=== PATIENT | male | born 1975 | race Caucasian/White ===

== ENCOUNTER → 2016-12-14 | Outpatient (CLI) | payer BC, OTHER ==
[~2016-12-14] MED LIST: ALLE24TA8 PO; CELE-19 PO; CYMB1CAP PO; FLON0.054; GABA-282 PO; IBUP200T2 PO; IBUP80TA PO; LYRI75CA PO; MONT10TA2 PO; NEUR300C PO; PERC7.5T12 PO; TYLE167L PO; VOLT1GEL24 TD
--- NOTE | 2016-12-26 01:38 | ECWPNPC ---
PATIENT NAME: AMRIT FUNES : 1975 GENDER: MALE VISIT DATE: 12/14/2016 DISCHARGE DATE: 12/14/16 1511 VISIT LOCKED DATE TIME: PHYSICIAN: KAVIN MERCHANT RESOURCE: KAVIN MERCHANT REASON FOR APPOINTMENT 1. BACK HISTORY OF PRESENT ILLNESS HISTORY OF PRESENT ILLNESS: PAIN THE PATIENT DESCRIBES THE PAIN... 40 YEAR OLD MALE PATIENT WITH HISTORY OF CHRONIC LOW BACK PAIN. PATIENT DESCRIBES THE PAIN ACHING, SHOOTING, AND IT COMES AND GOES WITH A PAIN SCORE OF 1-3/10. PATIENT HAD A LEFT DISCECTOMY OF THE L5-S1 IN MARCH OF 2016 AND REPORTS OF DOING VERY WELL SINCE THE SURGERY. PATIENT STATES THAT IN THE MORNING HE WAKES UP WITH ACHES BUT SOON HE GETS MOVING IT GOES AWAY AND THE SHOOTING PAIN OCCURS WHEN HE DOES RECREATIONAL TYPE ACTIVITIES AND PROLONGED DRIVING. PATIENT STATES THAT HIS PAIN IS VERY MANAGEABLE AT THIS TIME AND DOES NOT THINK HE REQUIRES ANY INTERVENTIONS. PATIENT DENIES UNEXPLAINABLE WEIGHT LOSS, FEVER, CHILLS, NEW CHANGES ON HIS URINARY OR BOWEL CONTROL. FALL RISK SCREENING: SCREENING :NO FALLS IN THE PAST YEAR CURRENT MEDICATIONS TAKING FLONASE INHALER 1 SPRAY IN EACH NOSTRIL NASALLY ONCE A DAY TAKING GABAPENTIN 300 MG CAPSULE 1-2 CAPSULE ORALLY THREE TIMES A DAY, NOTES: LAST 529 TODAY TAKING IBUPROFEN 800 MG TABLET 1 TABLET ORALLY THREE TIMES A DAY, NOTES: LAST 529 TODAY TAKING VOLTAREN 1 % GEL 1 DOSE EXTERNALLY UP TO 4 TIMES DAY NEEDED, NOTES: LAST 529 TODAY TAKING LORATADINE 10 MG TABLET 1 TABLET ORALLY ONCE A DAY TAKING OMEPRAZOLE 20 MG CAPSULE DELAYED RELEASE 2 CAPSULES ORALLY ONCE A DAY NOT-TAKING PERCOCET 5-325 MG TABLET 1 TABLET NEEDED ORALLY DAILY NEEDED, NOTES: LAST 529 TODAY NOT-TAKING MONTELUKAST SODIUM 10 MG TABLET ORALLY ONCE A DAY, NOTES: LAST529 TODAY NOT-TAKING MELOXICAM 15 MG TABLET 1 TABLET ORALLY ONCE A DAY NEED, NOTES: LAST WEEK NOT-TAKING ZANAFLEX 2 MG CAPSULE 1 TO 2 CAPSULE NEEDED ORALLY QHS PRN FOR CRAMPS AND PAIN MEDICATION LIST REVIEWED AND RECONCILED WITH THE PATIENT PAST MEDICAL HISTORY BACK PAIN ALLERGIES CODEINE SULFATE: RASH SURGICAL HISTORY L4L5 LAMINECTOMY WITH DISCETOMY 2012 L5S1 LAMINECTOMY LEFT 2016 VAER[facility]OMY 2000 FAMILY HISTORY FATHER: ALIVE, DIAGNOSED WITH DIABETES, HYPERTENSION, HEART DISEASE, OTHER MOTHER: ALIVE, DIAGNOSED WITH DIABETES, CANCER 1 BROTHER - TBI 1 SON- 2MONTH OLD. SOCIAL HISTORY GENERAL: PAIN CLINIC PFS, CLERGY, PUBLIC HEALTH REFERRALS CLERGY REFERRAL NEEDED?NO WAS THE PROVIDER NOTIFIED OF ANY PERTINENT INFO?NO PFS REFERRAL NEEDED?NO PUBLIC HEALTH REFERRAL NEEDED?NO PATIENT: ____. HOSPITALIZATION/MAJOR DIAGNOSTIC PROCEDURE MONONUCLEOSIS MONONUCLEOSIS , HEPITITS REVIEW OF SYSTEMS CONSTITUTIONAL: ANY CHANGE IN YOUR MEDICAL CONDITION? YES PT HAD LEFT SIDE L5-S1 DISCECTOMY spring IN [place], [place]. . CHILLS NO . FEVER NO . INFECTION: DO YOU HAVE NEW INFECTIONS? NO . DO YOU HAVE HISTORY OF MRSA? NO . MUSCULOSKELETAL: ANY NEW PATTERNS OF PAIN OR NUMBNESS? NO . GASTROENTEROLOGY: ANY NEW CHANGE IN BOWEL CONTROL? NO . GENITOURINARY: ANY NEW CHANGE IN BLADDER CONTROL? NO . IS THERE A CHANCE YOU COULD BE ? NO . HEMATOLOGY/LYMPH: DO YOU TAKE ANY BLOOD THINNERS? (FOR EXAMPLE- COUMADIN, PLAVIX, AGGRENOX, PLATEL, PRADAXA, OR XARELTO) NO . WHEN WAS YOUR LAST DOSE? DATE: TIME: . NEUROLOGY: HAVE YOU FALLEN IN THE PAST 6 MONTHS? NO . ANY NEW EXTREMITY NUMBNESS OR WEAKNESS? NO . CARDIOLOGY: DO YOU HAVE A PACEMAKER OR DEFIBRILLATOR? NO . RESPIRATORY: HAVE YOU BEEN SICK IN THE PAST WEEK? NO . FEVER NO . FLU LIKE SYMPTOMS? NO . COUGH NO . INTEGUMENTARY: DO YOU HAVE ANY RASHES OR OPEN SORES? NO . ALLERGIC/IMMUNO: ARE YOU ALLERGIC TO SHELLFISH OR IV DYE? NO . ANY NEW ALLERGIES? NO . PSYCHIATRIC: DO YOU HAVE THOUGHTS OF HURTING YOURSELF OR SOMEONE ELSE? NO . ARE YOU ABUSED, NEGLECTED, OR IN AN UNSAFE ENVIRONMENT? NO . ENDOCRINOLOGY: ARE YOU DIABETIC? NO . OTHER: DO YOU NEED ANY PRESCRIPTIONS? NO . IF YES, PLEASE LIST: ____ . ANY NEW PROBLEMS WITH YOUR MEDICATIONS? NO . WHEN DID YOU LAST EAT? ____ . WHEN DID YOU LAST DRINK? ____ . WHAT DID YOU LAST DRINK? ____ . NAME OF PERSON DRIVING YOU HOME? ____ . DO YOU HAVE ANY OTHER QUESTIONS OR CONCERNS NO . REVIEWED BY: PROVIDER: KAVIN MERCHANT MD . VITAL SIGNS WT 247.8 LBS, HT 71 IN, BMI 34.56 INDEX, BP 133/90 MM HG, HR 92 /MIN, RR 18 /MIN, TEMP 99 F, OXYGEN SAT % 97, SAFE IN ENV? (Y/N) YES, NA INITIALS [id number], REVIEWED BY: EDWIN. EXAMINATION : PATIENT IS ALERT O X 3 AND COOPERATIVE. PATIENT AMBULATES WITH A NORMAL GAIT. ASSESSMENTS POSTLAMINECTOMY SYNDROME, NOT ELSEWHERE CLASSIFIED - M96.1 (PRIMARY) TREATMENT POSTLAMINECTOMY SYNDROME, NOT ELSEWHERE CLASSIFIED NOTES: WE DISCUSSED SEVERAL ISSUES WITH MR. GOMEZ'S PAIN MANAGEMENT CASE. AT THIS TIME, I WILL HOLD OFF INTERVENTIONS DUE TO THE PATIENT DOING VERY WELL. I DISCUSSED WITH THE PATIENT THAT I CAN SEE HIM AGAIN 1 YEAR FROM NOW WITHOUT HAVING ANOTHER REFERRAL BEING SENT OUT. INFORMED THE PATIENT AT THIS TIME I ADVISED HIM TO GIVE US A CALL IF NEEDED, OTHERWISE WE WILL SEE HIM ABOUT ONE YEAR OR LESS FROM TODAY. INSTRUCTIONS WERE GIVEN, QUESTIONS WERE ANSWERED, PATIENT REPORTS UNDERSTANDING AND AGREES WITH THE PLAN. I, ANDREW GRIFFITHS, DOCUMENTED THE ABOVE INFORMATION ACTING A SCRIBE FOR DR. MERCHANT. I HAVE REVIEWED THE ABOVE DOCUMENT, WRITTEN BY ANDREW GRIFFITHS SCRIBE AND I VERIFY THAT IT IS ACCURATE. PROCEDURE CODES FA211 ESTABILISHED PATIENT [facility] FACILITY CHARGE G8730 PAIN ASSESS POS TOOL F/U PLAN DOC G8427 DOC MEDS VERIFIED W/PT OR RE DISPOSITION & COMMUNICATION FOLLOW UP CALL NEEDED ELECTRONICALLY SIGNED BY KAVIN MERCHANT MD ON 12/24/2016 AT 08:20 AM EDT DISCLAIMER : THIS IS A VISIT SUMMARY EXTRACTED FROM THE [employer] CHART. IT IS NOT A COPY OF THE [employer] PROGRESS NOTE. MTDD
== END ==
LOC: M PAIN 14:00
PROVIDERS: ATTEND Anesthesiology
DX: M96.1 Postlaminectomy syndrome, not elsewhere classified (principal); Z88.5 Allergy status to narcotic agent; Z79.1 Long term (current) use of non-steroidal anti-inflammatories (NSAID); Z79.899 Other long term (current) drug therapy

== ENCOUNTER → 2017-04-05 | Outpatient (CLI) | payer BC, OTHER ==
[~2017-04-05] MED LIST changes: -CELE-19 PO; +CELE1CAP4 PO; +VOLT1GEL15 TD; -VOLT1GEL24 TD
--- NOTE | 2017-04-22 23:57 | ECWPNPC ---
PATIENT NAME: AMRIT FUNES : 1975 GENDER: MALE VISIT DATE: 04/05/2017 DISCHARGE DATE: 04/05/17 0955 VISIT LOCKED DATE TIME: PHYSICIAN: KAVIN MERCHANT RESOURCE: KAVIN MERCHANT REASON FOR APPOINTMENT 1. BACK PAIN HISTORY OF PRESENT ILLNESS HISTORY OF PRESENT ILLNESS: PAIN THE PATIENT DESCRIBES THE PAIN... 41 YEAR OLD MALE PATIENT WITH HISTORY OF CHRONIC LOW BACK PAIN. PATIENT DESCRIBES THE PAIN ACHING, SHOOTING, AND IT COMES AND GOES WITH A PAIN SCORE OF 4/5/10. PATIENT HAD A LEFT DISCECTOMY OF THE L5-S1 IN MARCH OF 2016 AND REPORTS OF DOING VERY WELL SINCE THE SURGERY. PATIENT STATES THAT IN THE MORNING HE WAKES UP WITH ACHES BUT SOON HE GETS MOVING IT GOES AWAY AND THE SHOOTING PAIN OCCURS WHEN HE DOES RECREATIONAL TYPE ACTIVITIES AND PROLONGED DRIVING. PATIENT STATES THAT HIS PAIN IS VERY MANAGEABLE AT THIS TIME AND DOES NOT THINK HE REQUIRES ANY INTERVENTIONS. PATIENT DENIES UNEXPLAINABLE WEIGHT LOSS, FEVER, CHILLS, NEW CHANGES ON HIS URINARY OR BOWEL CONTROL. FALL RISK SCREENING: SCREENING :NO FALLS IN THE PAST YEAR CURRENT MEDICATIONS TAKING FLONASE INHALER 1 SPRAY IN EACH NOSTRIL NASALLY ONCE A DAY TAKING GABAPENTIN 300 MG CAPSULE 1-2 CAPSULE ORALLY THREE TIMES A DAY, NOTES: LAST 529 TODAY TAKING IBUPROFEN 800 MG TABLET 1 TABLET ORALLY THREE TIMES A DAY, NOTES: LAST 529 TODAY TAKING VOLTAREN 1 % GEL 1 DOSE EXTERNALLY UP TO 4 TIMES DAY NEEDED, NOTES: 529 TODAY TAKING LORATADINE 10 MG TABLET 1 TABLET ORALLY ONCE A DAY TAKING OMEPRAZOLE 20 MG CAPSULE DELAYED RELEASE 2 CAPSULES ORALLY ONCE A DAY TAKING TRAMADOL HCL 50 MG TABLET 1 TAB ORALLY DAILY NOT-TAKING PERCOCET 5-325 MG TABLET 1 TABLET NEEDED ORALLY DAILY NEEDED, NOTES: LAST 529 TODAY NOT-TAKING MONTELUKAST SODIUM 10 MG TABLET ORALLY ONCE A DAY, NOTES: LAST529 TODAY NOT-TAKING MELOXICAM 15 MG TABLET 1 TABLET ORALLY ONCE A DAY NEED, NOTES: LAST WEEK NOT-TAKING ZANAFLEX 2 MG CAPSULE 1 TO 2 CAPSULE NEEDED ORALLY QHS PRN FOR CRAMPS AND PAIN MEDICATION LIST REVIEWED AND RECONCILED WITH THE PATIENT PAST MEDICAL HISTORY BACK PAIN ALLERGIES CODEINE SULFATE: RASH SURGICAL HISTORY L4L5 LAMINECTOMY WITH DISCETOMY 2012 L5S1 [facility] LEFT [facility] SOCIAL HISTORY GENERAL: TOBACCO USE SMOKING CESSATION INFORMATION GIVEN04/05/2017 LEARNING BARRIERS / SPECIAL NEEDS ABILITY TO UNDERSTAND VERBAL INSTRUCTIONS GOOD , ABILITY TO UNDERSTAND WRITTEN INSTRUCTIONS GOOD , KNOWLEDGE OF EDUCATIONAL NEEDS/TREATMENT PLAN GOOD , 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 PAIN CLINIC PFS, CLERGY, PUBLIC HEALTH REFERRALS PFS REFERRAL NEEDED? NO , CLERGY REFERRAL NEEDED? NO , PUBLIC HEALTH REFERRAL NEEDED? NO , WAS THE PROVIDER NOTIFIED OF ANY PERTINENT INFO? NO . HOSPITALIZATION/MAJOR DIAGNOSTIC PROCEDURE MONONUCLEOSIS MONONUCLEOSIS , HEPITITS REVIEW OF SYSTEMS REVIEWED BY: PROVIDER: KAVIN MERCHANT MD . CONSTITUTIONAL: ANY CHANGE IN YOUR MEDICAL CONDITION? NO . CHILLS NO . FEVER NO . INFECTION: DO YOU HAVE NEW INFECTIONS? NO . DO YOU HAVE HISTORY OF MRSA? NO . MUSCULOSKELETAL: ANY NEW PATTERNS OF PAIN OR NUMBNESS? NO . GASTROENTEROLOGY: ANY NEW CHANGE IN BOWEL CONTROL? NO . GENITOURINARY: ANY NEW CHANGE IN BLADDER CONTROL? NO . IS THERE A CHANCE YOU COULD BE ? NO . HEMATOLOGY/LYMPH: DO YOU TAKE ANY BLOOD THINNERS? (FOR EXAMPLE- COUMADIN, PLAVIX, AGGRENOX, PLATEL, PRADAXA, OR XARELTO) NO . WHEN WAS YOUR LAST DOSE? DATE: TIME: . NEUROLOGY: HAVE YOU FALLEN IN THE PAST 6 MONTHS? NO . ANY NEW EXTREMITY NUMBNESS OR WEAKNESS? NO . CARDIOLOGY: DO YOU HAVE A PACEMAKER OR DEFIBRILLATOR? NO . RESPIRATORY: HAVE YOU BEEN SICK IN THE PAST WEEK? NO . FEVER NO . FLU LIKE SYMPTOMS? NO . COUGH NO . INTEGUMENTARY: DO YOU HAVE ANY RASHES OR OPEN SORES? NO . ALLERGIC/IMMUNO: ARE YOU ALLERGIC TO SHELLFISH OR IV DYE? NO . ANY NEW ALLERGIES? NO . PSYCHIATRIC: DO YOU HAVE THOUGHTS OF HURTING YOURSELF OR SOMEONE ELSE? NO . ARE YOU ABUSED, NEGLECTED, OR IN AN UNSAFE ENVIRONMENT? NO . ENDOCRINOLOGY: ARE YOU DIABETIC? NO . OTHER: DO YOU NEED ANY PRESCRIPTIONS? NO . IF YES, PLEASE LIST: ____ . ANY NEW PROBLEMS WITH YOUR MEDICATIONS? NO . WHEN DID YOU LAST EAT? ____ . WHEN DID YOU LAST DRINK? ____ . WHAT DID YOU LAST DRINK? ____ . NAME OF PERSON DRIVING YOU HOME? ____ . DO YOU HAVE ANY OTHER QUESTIONS OR CONCERNS NO . VITAL SIGNS WT 237.6 LBS, HT 71 IN, BMI 33.13 INDEX, BP 146/69 MM HG, HR 66 /MIN, RR 18 /MIN, TEMP 98.0 F, OXYGEN SAT % 97%, NA INITIALS SC 08:54. EXAMINATION : PATIENT IS ALERT O X 3 AND COOPERATIVE. PATIENT AMBULATES WITH A NORMAL GAIT. TENDERNESS IN THE LOWER BACK AND PARASPINAL MUSCLE GROUP. LUMBAR MRI DONE ON 11/09/15 SHOWS A DISC PROTRUSION AT L4-L5 AND L5-S1 AND FACET ATROPHY. 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 FUNES' PAIN MANAGEMENT CASE. AT THIS TIME THE PATIENT WILL CONTINUE WITH THE SAME MEDICATION REGIME BEFORE. DUE TO THE PATIENT HAVING GOOD PAIN RELIEF FROM LUMBAR FACET BLOCKS I WOULD LIKE TO MOVE FORWARD WITH A THERAPEUTIC LUMBAR FACET BLOCK. WE DISCUSSED THE RISKS, BENENFITS, AND ALTNERATIVES OF THE INJECTION AND THE PATIENT WOULD LIKE TO PROCEED AT THIS TIME. INSTRUCTIONS WERE GIVEN, QUESTIONS WERE ANSWERED, PATIENT REPORTS UNDERSTANDING AND AGREES WITH THE PLAN. I, NANCY LAL, DOCUMENTED THE ABOVE INFORMATION ACTING A SCRIBE FOR DR. MERCHANT. I HAVE REVIEWED THE ABOVE DOCUMENT, WRITTEN BY NANCY YU AND I VERIFY THAT IT IS ACCURATE. PREVENTIVE MEDICINE PAIN CLINIC TEACHING: PROCEDURE TEACHING WENT OVER PROCEDURE EDUCATION WITH THE PT WHO VERBALIZES UNDERSTANDING. PROCEDURE CODES FA211 ESTABILISHED PATIENT [facility] FACILITY CHARGE G8427 DOC MEDS VERIFIED W/PT OR RE G8730 PAIN ASSESS POS TOOL F/U PLAN DOC DISPOSITION & COMMUNICATION FOLLOW UP 3 WEEKS ELECTRONICALLY SIGNED BY KAVIN MERCHANT MD ON 04/22/2017 AT 08:09 PM EDT DISCLAIMER : THIS IS A VISIT SUMMARY EXTRACTED FROM THE [employer] CHART. IT IS NOT A COPY OF THE [employer] PROGRESS NOTE. HENNY
== END ==
LOC: M PAIN 09:00
PROVIDERS: ATTEND Anesthesiology
DX: G89.29 Other chronic pain (principal); M47.816 Spondylosis without myelopathy or radiculopathy, lumbar region; M51.16 Intervertebral disc disorders with radiculopathy, lumbar region; M51.17 Intervertebral disc disorders with radiculopathy, lumbosacral region; M47.817 Spondylosis without myelopathy or radiculopathy, lumbosacral region; Z88.5 Allergy status to narcotic agent; Z79.1 Long term (current) use of non-steroidal anti-inflammatories (NSAID); Z79.891 Long term (current) use of opiate analgesic; Z79.899 Other long term (current) drug therapy

== ENCOUNTER → 2017-06-25 | Outpatient (CLI) | payer BC, OTHER ==
[~2017-06-25] MED LIST changes: +BUPIVACAINE HCL 0.25% 30 ML VIAL As Ordered ONE; +ISOVUE-M 300 61% 15ML VIAL (Q9967) As Ordered ONE; +LIDOCAINE 1% SDV INJ 30 ML VIAL As Ordered ONE; +TRIAMCINOLONE ACETONIDE SUSP 40 MG/ML VIAL (J3301) As Ordered ONE; +diazePAM 5 MG TAB As Ordered ONE; +oxyCODONE 5MG TAB As Ordered ONE
--- NOTE | 2017-06-25 16:53 | REP ---
FACET BLOCK: The images were reviewed with Dr. Flowers. The patient has a history of low back pain. The portable C-ARM was provided in the OR for Dr. Sanchez for fluoroscopic guidance. 2 intraoperative fluoroscopic spot films were obtained for needle placement verification for bilateral lumbar facet injection. The films are on the PACs system and are available for review. 33 seconds of fluoroscopic time was utilized for this procedure. Reviewed by ROSA Pham 06/26/2017 02:46 PEdited and Signed by Dong Flowers MD 06/26/2017 05:03 P
--- NOTE | 2017-06-30 23:34 | ECWPNPC ---
PATIENT NAME: AMRIT FUNES : 1975 GENDER: MALE VISIT DATE: 06/25/2017 DISCHARGE DATE: 06/25/17 1117 VISIT LOCKED DATE TIME: PHYSICIAN: KAVIN MERCHANT RESOURCE: KAVIN MERCHANT REASON FOR APPOINTMENT 1. LUM FACET, THERA HISTORY OF PRESENT ILLNESS ASTHMA: HISTORY OF PRESENT ILLNESS: PAIN THE PATIENT DESCRIBES THE PAIN... FALL RISK SCREENING: SCREENING :NO FALLS IN THE PAST YEAR CURRENT MEDICATIONS TAKING FLONASE INHALER 1 SPRAY IN EACH NOSTRIL NASALLY ONCE A DAY, NOTES: LAST WEEK TAKING GABAPENTIN 300 MG CAPSULE 1-2 CAPSULE ORALLY THREE TIMES A DAY, NOTES: 2TABS 06/25 500 TAKING IBUPROFEN 800 MG TABLET 1 TABLET ORALLY THREE TIMES A DAY, NOTES: 1 TAB 06/25 500 TAKING VOLTAREN 1 % GEL 1 DOSE EXTERNALLY UP TO 4 TIMES DAY NEEDED, NOTES: 2 DAYS AGO TAKING LORATADINE 10 MG TABLET 1 TABLET ORALLY ONCE A DAY, NOTES: 06/25 500 TAKING OMEPRAZOLE 20 MG CAPSULE DELAYED RELEASE 1 CAP ORALLY ONCE A DAY, NOTES: 06/25 500 TAKING TRAMADOL HCL 50 MG TABLET 1 TAB ORALLY DAILY, NOTES: 06/24 1630 TAKING CYCLOBENZAPRINE HCL 10 MG TABLET 1 TABLET ORALLY DAILY, NOTES: 06/24 1630 NOT-TAKING MONTELUKAST SODIUM 10 MG TABLET ORALLY ONCE A DAY, NOTES: LASTB 05 TODAY DISCONTINUED PERCOCET 5-325 MG TABLET 1 TABLET NEEDED ORALLY DAILY NEEDED, NOTES: LAST 529 TODAY DISCONTINUED MELOXICAM 15 MG TABLET 1 TABLET ORALLY ONCE A DAY NEED, NOTES: LAST WEEK DISCONTINUED ZANAFLEX 2 MG CAPSULE 1 TO 2 CAPSULE NEEDED ORALLY QHS PRN FOR CRAMPS AND PAIN MEDICATION LIST REVIEWED AND RECONCILED WITH THE PATIENT PAST MEDICAL HISTORY BACK PAIN ALLERGIES CODEINE SULFATE: RASH: ALLERGY SEASONAL: SINUS CONGRESTION AND PRESSURE, WATERY EYES,ITCHY: ALLERGY SOCIAL HISTORY GENERAL: TOBACCO USE ADDITIONAL FINDINGS: TOBACCO USERCHEWS TOBACCO SMOKING CESSATION INFORMATION GIVEN06/25/2017 ALCOHOL SCREENING POINTS0 INTERPRETATIONNEGATIVE RECREATIONAL DRUG USE DRUG USE?NO CAFFEINE CAFFEINE USE?YES HOW OFTEN AND HOW MUCH? 3-4 CUPS COFFEE/DAY DIET: REGULAR. PENTECOSTALISM [id number] JEWISH LEARNING BARRIERS / SPECIAL NEEDS BARRIERS TO LEARNING?NO HEARING IMPAIRED?NO VISION IMPAIRED?NO COGNITIVELY IMPAIRED?NO READINESS TO LEARN?YES LEARNING PREFERENCES?NO LEARNING CAPABILITIES PRESENT?YES EMOTIONAL BARRIERS?NO SPECIAL DEVICES?NO ENDOSCOPY REGISTERED NURSE NEEDED?NO PAIN CLINIC PFS, CLERGY, PUBLIC HEALTH REFERRALS HAS THE PATIENT BEEN EDUCATED REGARDING HIS/HER PLAN OF CARE?YES HAS THE PATIENT BEEN EDUCATED REGARDING PAIN, THE RISK FOR PAIN, THE IMPORTANCE OF EFFECTIVE PAIN MANAGEMENT, AND THE PAIN ASSESSMENT PROCESS?YES ADVANCE DIRECTIVES HEALTH CARE PROXY?YES NAME OF HCP ZORAN FUNES CONTACT # FOR HCP (H) DO YOU HAVE A COPY WITH YOU?NO DO YOU HAVE A DNR?NO WOULD YOU LIKE MORE INFORMATION?NO LIVING WILL?NO WOULD YOU LIKE MORE INFORMATION?NO POWER OF BRASS CLEANER?NO WOULD YOU LIKE MORE INFORMATION?NO DOMESTIC VIOLENCE DO YOU FEEL SAFE IN YOUR ENVIRONMENT?YES REVIEW OF SYSTEMS REVIEWED BY: PROVIDER: . CONSTITUTIONAL: ANY CHANGE IN YOUR MEDICAL CONDITION? NO . CHILLS NO . FEVER NO . INFECTION: DO YOU HAVE NEW INFECTIONS? NO . DO YOU HAVE HISTORY OF MRSA? NO . MUSCULOSKELETAL: ANY NEW PATTERNS OF PAIN OR NUMBNESS? NO . GASTROENTEROLOGY: ANY NEW CHANGE IN BOWEL CONTROL? NO . GENITOURINARY: ANY NEW CHANGE IN BLADDER CONTROL? NO . IS THERE A CHANCE YOU COULD BE ? NO . HEMATOLOGY/LYMPH: DO YOU TAKE ANY BLOOD THINNERS? (FOR EXAMPLE- COUMADIN, PLAVIX, AGGRENOX, PLATEL, PRADAXA, OR XARELTO) NO . WHEN WAS YOUR LAST DOSE? DATE: TIME: . NEUROLOGY: HAVE YOU FALLEN IN THE PAST 6 MONTHS? NO . ANY NEW EXTREMITY NUMBNESS OR WEAKNESS? NO . CARDIOLOGY: DO YOU HAVE A PACEMAKER OR DEFIBRILLATOR? NO . RESPIRATORY: HAVE YOU BEEN SICK IN THE PAST WEEK? NO . FEVER NO . FLU LIKE SYMPTOMS? NO . COUGH NO . INTEGUMENTARY: DO YOU HAVE ANY RASHES OR OPEN SORES? NO . ALLERGIC/IMMUNO: ARE YOU ALLERGIC TO SHELLFISH OR IV DYE? NO . ANY NEW ALLERGIES? NO . PSYCHIATRIC: DO YOU HAVE THOUGHTS OF HURTING YOURSELF OR SOMEONE ELSE? NO . ARE YOU ABUSED, NEGLECTED, OR IN AN UNSAFE ENVIRONMENT? NO . ENDOCRINOLOGY: ARE YOU DIABETIC? NO . OTHER: DO YOU NEED ANY PRESCRIPTIONS? NO . IF YES, PLEASE LIST: ____ . ANY NEW PROBLEMS WITH YOUR MEDICATIONS? NO . WHEN DID YOU LAST EAT? 06/24 1800 . WHEN DID YOU LAST DRINK? 06/25 0500 . WHAT DID YOU LAST DRINK? WATER . NAME OF PERSON DRIVING YOU HOME? , ZORAN . DO YOU HAVE ANY OTHER QUESTIONS OR CONCERNS NO . VITAL SIGNS WT 236.0 LBS, HT 71 IN, BMI 32.91 INDEX, BP 131/79 MM HG, HR 83 /MIN, RR 18 /MIN, TEMP 98.8 F, OXYGEN SAT % 97%, NA INITIALS AW 0906, REVIEWED BY: AD. ASSESSMENTS SPONDYLOSIS OF LUMBAR REGION WITHOUT MYELOPATHY OR RADICULOPATHY - M47.816 (PRIMARY) SPONDYLOSIS OF LUMBOSACRAL REGION WITHOUT MYELOPATHY OR RADICULOPATHY - M47.817 PROCEDURES PN LUMBAR FACET BLOCK THERAPEUTIC PRE PROCEDURE DIAGNOSIS LUMBAR SPONDYLOSIS, LUMBOSACRAL SPONDYLOSIS POST PROCEDURE DIAGNOSIS LUMBAR SPONDYLOSIS, LUMBOSACRAL SPONDYLOSIS PROCEDURE BILATERAL L4-L5 AND BILATERAL L5-S1 LUMBAR FACET THERAPEUTIC BLOCK SURGEON DR. KAVIN MERCHANT EMERGENCY MANAGEMENT CONSULTANT NONE ANESTHESIA LOCAL PRE PROCEDURE NOTE THE PATIENT HAS A HISTORY OF CHRONIC LOW BACK PAIN. I EVALUATE THE PATIENT AND REVIEWED THE CHART. I WENT OVER THE RISKS, ALTERNATIVES, AND BENEFITS ASSOCIATED WITH THIS PROCEDURE. THE PATIENT WOULD LIKE TO PROCEED AND GIVE CONSENT TO PERFORMED THE PROCEDURE. THE PATIENT DENIES UNEXPLAINABLE WEIGHT LOSS, FEVER, CHILLS, OR NEW CHANGES IN URINARY OR BOWEL CONTROL DESCRIPTION OF PROCEDURE THE PATIENT WAS BROUGHT TO THE PROCEDURE ROOM AND PLACED IN THE PRONE POSITION. THE LUMBOSACRAL AREA WAS CLEANED WITH CHLORAPREP SOLUTION AND DRAPED ASEPTICALLY. THE PROCEDURE WAS DONE UNDER STERILE CONDITIONS. I CHECKED LATERALITY AND THE LEVEL WHERE THE PROCEDURE WAS GOING TO BE PERFORMED WITH THE PATIENT AND THE SUPPORTING STAFF AT THE MOMENT OF THE TIME OUT IN THE PROCEDURE ROOM. UNDER FLUOROSCOPIC GUIDANCE, THE TARGET POINT WAS SELECTED AT THE RIGHT AND LEFT L4-L5 AND RIGHT AND LEFT L5-S1 FACET JOINT. TARGET POINT WAS SELECTED AFTER LATERAL ROTATION AND TILT OF THE MAGNIFIER OF THE C-ARM. LIDOCAINE 0.5% WAS USED TO NUMB THE SKIN AND THE SUBCUTANEOUS TISSUE BELOW IT. SPINAL NEEDLES, 22-GAUGE, WERE ADVANCED UNDER FLUOROSCOPIC GUIDANCE AND FOLLOWING PATIENT FEEDBACK UNTIL THE TARGETS WERE TOUCHED. THE POSITION OF THE NEEDLES WAS VERIFIED WITH AP AND LATERAL VIEWS. AFTER PROPER POSITION OF THE NEEDLES WAS ACHIEVED, ISOVUE-M DYE 30% 0.1 ML WAS INJECTED SHOWING ADEQUATE SPREAD OF THE DYE. THEN A SOLUTION OF 1.9 ML OF BUPIVACAINE 0.125% OF KENALOG 10 MG WAS INJECTED AT EACH SITE. THERE WAS NO EVIDENCE OF BLOOD, PARESTHESIA OR CEREBROSPINAL FLUID DURING THE PROCEDURE. THE PATIENT WAS SENT TO THE RECOVERY ROOM. THE PATIENT WAS MOVING THE EXTREMITIES AND DOING WELL. THERE WAS NO COMPLICATION DURING THE PROCEDURE. FLUOROSCOPY TIME WAS 33 SECONDS POST PROCEDURE NOTE THE PATIENT WILL BE SEEN IN A FOLLOW UP IN THE NEXT FEW WEEKS. INSTRUCTIONS WERE GIVEN, QUESTIONS WERE ANSWERED, AND THE PATIENT EXPRESSED UNDERSTANDING AND AGREES WITH THE PLAN. I, NANCY LAL, DOCUMENTED THE ABOVE INFORMATION ACTING A SCRIBE FOR DR. MERCHANT. I HAVE REVIEWED THE ABOVE DOCUMENT, WRITTEN BY NANCY LAL SCRIBE AND I VERIFY THAT IT IS ACCURATE DIAGNOSTIC IMAGING [facility] FACET BLOCK (PAIN)[id number] PROCEDURE CODES 29617 INJ PARAVERT F JNT L/S 1 LEV, MODIFIERS: 50 00011 INJ PARAVERT F JNT L/S 2 LEV, MODIFIERS: 50 [id number] RADXPS IN END [id number] PXD DISPOSITION & COMMUNICATION FOLLOW UP 3 WEEKS ELECTRONICALLY SIGNED BY KAVIN MERCHANT MD ON 06/30/2017 AT 01:36 PM EDT DISCLAIMER : THIS IS A VISIT SUMMARY EXTRACTED FROM THE [employer] CHART. IT IS NOT A COPY OF THE [employer] PROGRESS NOTE. MTDD
== END ==
LOC: M PAIN 08:45
PROVIDERS: ATTEND Anesthesiology
DX: G89.29 Other chronic pain (principal); M47.816 Spondylosis without myelopathy or radiculopathy, lumbar region; M47.817 Spondylosis without myelopathy or radiculopathy, lumbosacral region; F17.220 Nicotine dependence, chewing tobacco, uncomplicated; J30.2 Other seasonal allergic rhinitis; Z88.5 Allergy status to narcotic agent; Z79.1 Long term (current) use of non-steroidal anti-inflammatories (NSAID); Z79.891 Long term (current) use of opiate analgesic; Z79.899 Other long term (current) drug therapy
CPT/HCPCS: 64493; 64494; J3301; Q9967

== ENCOUNTER → 2017-07-12 | Outpatient (CLI) | payer BC, OTHER ==
[~2017-07-12] MED LIST changes: -BUPIVACAINE HCL 0.25% 30 ML VIAL As Ordered ONE; -ISOVUE-M 300 61% 15ML VIAL (Q9967) As Ordered ONE; -LIDOCAINE 1% SDV INJ 30 ML VIAL As Ordered ONE; -TRIAMCINOLONE ACETONIDE SUSP 40 MG/ML VIAL (J3301) As Ordered ONE; -diazePAM 5 MG TAB As Ordered ONE; -oxyCODONE 5MG TAB As Ordered ONE
--- NOTE | 2017-07-31 01:41 | ECWPNPC ---
PATIENT NAME: AMRIT FUNES : 1975 GENDER: MALE VISIT DATE: 07/12/2017 DISCHARGE DATE: 07/12/17 1450 VISIT LOCKED DATE TIME: PHYSICIAN: EDGAR WORTHY RESOURCE: EDGAR WORTHY REASON FOR APPOINTMENT 1. POST PROCEDURE HISTORY OF PRESENT ILLNESS HISTORY OF PRESENT ILLNESS: HERE FOR POST PROCEDURE F/U.HAD BILATERAL L4/5,L5/S1 THERAPEUTIC FACET BLOCK ON 06-25-17.REPORTS >50% IMPROVEMENT IN PAIN POST PROCEDURE THAT CONTINUES TODAY.RATING PAIN VAS 2/10.DESCRIBES PAIN ACHING ACROSS LOW BACK. PAIN THE PATIENT DESCRIBES THE PAIN... FALL RISK SCREENING: SCREENING :NO FALLS IN THE PAST YEAR CURRENT MEDICATIONS TAKING FLONASE INHALER 1 SPRAY IN EACH NOSTRIL NASALLY ONCE A DAY TAKING GABAPENTIN 300 MG CAPSULE 1-2 CAPSULE ORALLY THREE TIMES A DAY TAKING IBUPROFEN 800 MG TABLET 1 TABLET ORALLY THREE TIMES A DAY TAKING VOLTAREN 1 % GEL 1 DOSE EXTERNALLY UP TO 4 TIMES DAY NEEDED TAKING LORATADINE 10 MG TABLET 1 TABLET ORALLY ONCE A DAY TAKING OMEPRAZOLE 20 MG CAPSULE DELAYED RELEASE 1 CAP ORALLY ONCE A DAY TAKING TRAMADOL HCL 50 MG TABLET 1 TAB ORALLY DAILY TAKING CYCLOBENZAPRINE HCL 10 MG TABLET 1 TABLET ORALLY DAILY UNKNOWN MONTELUKAST SODIUM 10 MG TABLET ORALLY ONCE A DAY, NOTES: LASTB 0530 TODAY MEDICATION LIST REVIEWED AND RECONCILED WITH THE PATIENT PAST MEDICAL HISTORY BACK PAIN ALLERGIES CODEINE SULFATE: RASH: ALLERGY SEASONAL: SINUS CONGRESTION AND PRESSURE, WATERY EYES,ITCHY: ALLERGY SURGICAL HISTORY L4L5 LAMINECTOMY WITH DISCETOMY 2012 L5S1 LAMINECTOMY LEFT 2016 VAERICECTOMY 2000 SOCIAL HISTORY GENERAL: TOBACCO USE ADDITIONAL FINDINGS: TOBACCO USERCHEWS TOBACCO SMOKING CESSATION INFORMATION GIVEN06/25/2017 ALCOHOL SCREENING DID YOU HAVE A DRINK CONTAINING ALCOHOL IN THE PAST YEAR?NO POINTS0 INTERPRETATIONNEGATIVE RECREATIONAL DRUG USE DRUG USE?NO CAFFEINE CAFFEINE USE?YES HOW OFTEN AND HOW MUCH? 3-4 CUPS COFFEE/DAY DIET: REGULAR. TEMPLE [id number] YARSANI LEARNING BARRIERS / SPECIAL NEEDS BARRIERS TO LEARNING?NO HEARING IMPAIRED?NO VISION IMPAIRED?NO COGNITIVELY IMPAIRED?NO READINESS TO LEARN?YES LEARNING PREFERENCES?NO LEARNING CAPABILITIES PRESENT?YES EMOTIONAL BARRIERS?NO SPECIAL DEVICES?NO CYANIDE FURNACE OPERATOR NEEDED?NO PAIN CLINIC PFS, CLERGY, PUBLIC HEALTH REFERRALS HAS THE PATIENT BEEN EDUCATED REGARDING HIS/HER PLAN OF CARE?YES HAS THE PATIENT BEEN EDUCATED REGARDING PAIN, THE RISK FOR PAIN, THE IMPORTANCE OF EFFECTIVE PAIN MANAGEMENT, AND THE PAIN ASSESSMENT PROCESS?YES ADVANCE DIRECTIVES HEALTH CARE PROXY?YES NAME OF HCP ZORAN FUNES CONTACT # FOR HCP [phone] (H) DO YOU HAVE A COPY WITH YOU?NO DO YOU HAVE A DNR?NO WOULD YOU LIKE MORE INFORMATION?NO LIVING WILL?NO WOULD YOU LIKE MORE INFORMATION?NO POWER OF ANCHORMAN?NO WOULD YOU LIKE MORE INFORMATION?NO DOMESTIC VIOLENCE DO YOU FEEL SAFE IN YOUR ENVIRONMENT?YES HOSPITALIZATION/MAJOR DIAGNOSTIC PROCEDURE MONONUCLEOSIS MONONUCLEOSIS , HEPITITS REVIEW OF SYSTEMS REVIEWED BY: PROVIDER: EDGAR HERRING . CONSTITUTIONAL: ANY CHANGE IN YOUR MEDICAL CONDITION? NO . CHILLS NO . FEVER NO . INFECTION: DO YOU HAVE NEW INFECTIONS? NO . DO YOU HAVE HISTORY OF MRSA? NO . MUSCULOSKELETAL: ANY NEW PATTERNS OF PAIN OR NUMBNESS? NO, PT STATES BILAT LUMBAR FACET BLOCK THERAPEUTIC DONE 06/25/17. PRE PROCEDURE PAIN WAS 5/10, POST PROCEDURE PAIN WAS 3-4, TODAY PAIN IS 2-3 . GASTROENTEROLOGY: ANY NEW CHANGE IN BOWEL CONTROL? NO . GENITOURINARY: ANY NEW CHANGE IN BLADDER CONTROL? NO . IS THERE A CHANCE YOU COULD BE ? NO . HEMATOLOGY/LYMPH: DO YOU TAKE ANY BLOOD THINNERS? (FOR EXAMPLE- COUMADIN, PLAVIX, AGGRENOX, PLATEL, PRADAXA, OR XARELTO) NO . WHEN WAS YOUR LAST DOSE? DATE: TIME: . NEUROLOGY: HAVE YOU FALLEN IN THE PAST 6 MONTHS? NO . ANY NEW EXTREMITY NUMBNESS OR WEAKNESS? NO . CARDIOLOGY: DO YOU HAVE A PACEMAKER OR DEFIBRILLATOR? NO . RESPIRATORY: HAVE YOU BEEN SICK IN THE PAST WEEK? NO . FEVER NO . FLU LIKE SYMPTOMS? NO . COUGH NO . INTEGUMENTARY: DO YOU HAVE ANY RASHES OR OPEN SORES? NO . ALLERGIC/IMMUNO: ARE YOU ALLERGIC TO SHELLFISH OR IV DYE? NO . ANY NEW ALLERGIES? NO . PSYCHIATRIC: DO YOU HAVE THOUGHTS OF HURTING YOURSELF OR SOMEONE ELSE? NO . ARE YOU ABUSED, NEGLECTED, OR IN AN UNSAFE ENVIRONMENT? NO . ENDOCRINOLOGY: ARE YOU DIABETIC? NO . OTHER: DO YOU NEED ANY PRESCRIPTIONS? NO . IF YES, PLEASE LIST: ____ . ANY NEW PROBLEMS WITH YOUR MEDICATIONS? NO . WHEN DID YOU LAST EAT? ____ . WHEN DID YOU LAST DRINK? ____ . WHAT DID YOU LAST DRINK? ____ . NAME OF PERSON DRIVING YOU HOME? ____ . DO YOU HAVE ANY OTHER QUESTIONS OR CONCERNS NO . VITAL SIGNS WT 234.2 LBS, HT 71 IN, BMI 32.66 INDEX, BP 135/76 MM HG, HR 80 /MIN, RR 18 /MIN, TEMP 98.7 F, OXYGEN SAT % 98%, NA INITIALS SC 13:50, REVIEWED BY: NL. EXAMINATION GENERAL EXAMINATION: GENERAL APPEARANCE:ALERT,PLEASANT. PSYCHAFFECT NORMAL. LUNGS:LUNG EDWARD ARE CLEAR TO AUSCULTATION BILATERALLY. GOOD MOVEMENT OF AIR. HEART:S1, S2 IN A REGULAR RATE AND RHYTHM. NO SIGNIFICANT MURMURS, RUBS OR GALLOPS NOTED. BACK:NO TENDERNESS. MUSCULOSKELETAL:MUSCLE STRENGTH TESTING 5/5 BILATERAL LOWER EXTREMITIES. ASSESSMENTS SPONDYLOSIS OF LUMBAR REGION WITHOUT MYELOPATHY OR RADICULOPATHY - M47.816 (PRIMARY) PROCEDURE CODES FA211 ESTABILISHED PATIENT [facility] CHARGE DISPOSITION & COMMUNICATION FOLLOW UP 2 MONTHS ELECTRONICALLY SIGNED BY NEVAEH MILLER ON 07/29/2017 AT 12:40 PM EST DISCLAIMER : THIS IS A VISIT SUMMARY EXTRACTED FROM THE [employer] CHART. IT IS NOT A COPY OF THE [employer] PROGRESS NOTE. HENNY
== END | disposition home or self-care (01) ==
LOC: M PAIN 14:00
PROVIDERS: ATTEND Nurse Practitioner Family
DX: G89.29 Other chronic pain (principal); M47.816 Spondylosis without myelopathy or radiculopathy, lumbar region; Z79.899 Other long term (current) drug therapy; Z79.51 Long term (current) use of inhaled steroids; Z88.2 Allergy status to sulfonamides; Z88.5 Allergy status to narcotic agent; J30.89 Other allergic rhinitis; F17.220 Nicotine dependence, chewing tobacco, uncomplicated

== ENCOUNTER → 2017-11-01 | Outpatient (CLI) | payer BC, OTHER | LOC: M PAIN 14:30 | DX: M47.816 Spondylosis without myelopathy or radiculopathy, lumbar region (principal); M96.1 Postlaminectomy syndrome, not elsewhere classified; F17.220 Nicotine dependence, chewing tobacco, uncomplicated; Z79.891 Long term (current) use of opiate analgesic; Z79.899 Other long term (current) drug therapy; Z88.8 Allergy status to other drugs, medicaments and biological substances; J30.2 Other seasonal allergic rhinitis | CPT/HCPCS: G0463 ==

== ENCOUNTER → 2018-02-04 | Outpatient (CLI) | payer BC, OTHER ==
[~2018-02-04] MED LIST changes: -ALLE24TA8 PO; +BUPIVACAINE HCL 0.25% 30 ML VIAL As Ordered; -CELE1CAP4 PO; -CYMB1CAP PO; -FLON0.054; -GABA-282 PO; -IBUP200T2 PO; -IBUP80TA PO; +ISOVUE-M 300 61% 15ML VIAL (Q9967) As Ordered; +LIDOCAINE 1% SDV INJ 30 ML VIAL As Ordered; -LYRI75CA PO; -MONT10TA2 PO; -NEUR300C PO; -PERC7.5T12 PO; +TRIAMCINOLONE ACETONIDE SUSP 40 MG/ML VIAL (J3301) As Ordered; -TYLE167L PO; -VOLT1GEL15 TD; +diazePAM 5 MG TAB As Ordered; +oxyCODONE 5MG TAB As Ordered
== END ==
LOC: M PAIN 08:45
DX: G89.29 Other chronic pain (principal); M46.1 Sacroiliitis, not elsewhere classified; M53.88 Other specified dorsopathies, sacral and sacrococcygeal region; F17.290 Nicotine dependence, other tobacco product, uncomplicated; J30.2 Other seasonal allergic rhinitis; Z79.899 Other long term (current) drug therapy; Z88.5 Allergy status to narcotic agent
CPT/HCPCS: J3301

== ENCOUNTER → 2018-02-28 | Outpatient (CLI) | payer OTHER | LOC: M PAIN 14:00 | DX: M53.3 Sacrococcygeal disorders, not elsewhere classified (principal); M47.817 Spondylosis without myelopathy or radiculopathy, lumbosacral region; J30.2 Other seasonal allergic rhinitis; Z72.0 Tobacco use; Z79.891 Long term (current) use of opiate analgesic; Z79.899 Other long term (current) drug therapy; Z88.5 Allergy status to narcotic agent | CPT/HCPCS: G0463 ==

== ENCOUNTER → 2018-05-13 | Outpatient (CLI) | payer OTHER | LOC: M PAIN 14:30 | DX: M53.3 Sacrococcygeal disorders, not elsewhere classified (principal); M47.817 Spondylosis without myelopathy or radiculopathy, lumbosacral region; G89.29 Other chronic pain; J30.2 Other seasonal allergic rhinitis; Z79.899 Other long term (current) drug therapy; Z88.5 Allergy status to narcotic agent | CPT/HCPCS: G0463 ==

== ENCOUNTER → 2018-06-02 | Outpatient (CLI) | payer BC, OTHER | LOC: M PAIN 08:30 | DX: M47.816 Spondylosis without myelopathy or radiculopathy, lumbar region (principal); M47.817 Spondylosis without myelopathy or radiculopathy, lumbosacral region; F17.220 Nicotine dependence, chewing tobacco, uncomplicated; Z79.899 Other long term (current) drug therapy; Z79.1 Long term (current) use of non-steroidal anti-inflammatories (NSAID); Z88.5 Allergy status to narcotic agent; J30.2 Other seasonal allergic rhinitis | CPT/HCPCS: J3301 ==